=== PATIENT | female | born 1995 | race Two or more races ===

== ENCOUNTER 2024-07-02 18:31 | Emergency (ER) | payer OTHER ==
[~2024-07-02] VITALS: Ht 162.6 cm; Wt 63.5 kg
[2024-07-02] MEDS ORDERED: KETOROLAC TROMETHAMINE 30 MG VIAL IM ONE (22:45)
[2024-07-02] MEDS ORDERED: DEXAMETHASONE SODIUM PHOSPHATE 4 MG/ML VIAL IM ONE (22:45)
[2024-07-02] MEDS ORDERED: ORPHENADRINE CITRATE 30 MG/ML AMPUL IM ONE (22:45)
== END 2024-07-02 22:59 | disposition home or self-care (01) ==
LOC: ER 18:33
DX: M62.838 Other muscle spasm (principal)